=== PATIENT | female | born 2000 | race Caucasian/White ===

== ENCOUNTER 2022-04-30 11:13 | Emergency (ER) | payer OTHER, SELFPAY ==
[2022-04-30 11:35] VITALS: BP 105/72; PULSE 105; RESP 16; TEMP 37.3; O2SAT 100
--- NOTE | 2022-04-30 12:41 | ED.SKABFB ---
HPI - Skin/Abscess/Foreign Bdy General Chief complaint: Skin/Abscess/Foreign Body Stated complaint: Rash Time Seen by Provider: 04/30/22 12:41 Source: patient Mode of arrival: ambulatory Limitations: no limitations History of Present Illness HPI narrative: 21-year-old female presents with rash to right axilla area for 2 to 3 days. Has been applying triamcinolone cream with no relief. Is concerned it is an insect bite or contagious rash. Reports mild itching. No pain. All systems reviewed and negative except as noted above. Related Data Home Medications Medication Instructions Recorded Confirmed cetirizine 10 mg tablet tablet 04/30/22 famotidine 20 mg tablet tablet 04/30/22 hydroxyzine HCl 25 mg tablet tablet 04/30/22 montelukast 10 mg tablet tablet 04/30/22 vortioxetine 10 mg tablet tablet 04/30/22 (Trintellix) Allergies Allergy/AdvReac Type Severity Reaction Status Date / Time No Known Allergies Allergy Verified 04/30/22 12:34 Review of Systems Review of Systems: CONSTITUTIONAL: Denies fever, chills, or sweats. EYES: Denies visual changes, redness, or discharge. ENT: Denies rhinorrhea, congestion, sore throat, or otalgia. CARDIOVASCULAR: Denies chest pain, palpitations, or edema. RESPIRATORY: Denies cough or dyspnea. GASTROINTESTINAL: Denies abdominal pain, nausea, vomiting, or diarrhea. GENITOURINARY: Denies dysuria or hematuria. SKIN: Reports rash in axilla with itching. MUSCULOSKELETAL: Denies back pain, joint pain, or myalgia. NEUROLOGIC: Denies headache, numbness, or weakness. PSYCHIATRIC: Denies anxiety or depression. All other systems reviewed are negative, except as documented in HPI. PMFSH Comments At time of signature, agree with nursing past medical, surgical, social and family history. There is no relevant family history pertinent to the presenting complaint. Exam Narrative: GENERAL: This is a well-nourished, well-developed patient, in no apparent distress. HEAD: normocephalic, atraumatic. EYES: PERRL. Sclera clear/white. Vision is grossly intact. EARS: External ears normal NOSE: External nose normal NECK: Neck supple, non-tender without lymphadenopathy, masses or thyromegaly. CARDIOVASCULAR: Regular rate and rhythm without murmurs, gallops, or rubs. RESPIRATORY: Clear to auscultation. Breath sounds equal bilaterally. No wheezes, rales, or rhonchi. SKIN: warm, Dry, intact with no suspicious lesions, good texture and turgor. fine erythematous papular rash to R axilla without drainage or swelling. similar to imelda. NEURO: awake, alert, and oriented to person, place and time. There were no obvious focal neurologic abnormalities. EXTREMITIES: No joint tenderness, effusion, or edema noted. Course Course Level of Care: Express Care Visit Vital Signs Vital signs: Vital Signs Temperature 37.3 C 04/30/22 11:35 Pulse Rate 105 H 04/30/22 11:35 Respiratory Rate 16 04/30/22 11:35 Blood Pressure 105/72 04/30/22 11:35 Pulse Oximetry 100 04/30/22 11:35 Oxygen Delivery Room Air 04/30/22 11:35 Temperature 37.3 C 04/30/22 11:35 Pulse Rate 105 H 04/30/22 11:35 Respiratory Rate 16 04/30/22 11:35 Blood Pressure 105/72 04/30/22 11:35 Pulse Oximetry 100 04/30/22 11:35 Oxygen Delivery Room Air 04/30/22 11:35 Reviewed MDM - Skin/Abscess/Foreign Bdy MDM Narrative Medical decision making narrative: Patient is aware of diagnosis, understands and agrees to treatment plan. Anticipatory guidance given. Patient agrees to follow-up as directed and is aware of reasons to seek care at the emergency department. Portions of this record may have been created with voice recognition software Discharge Plan Discharge Clinical Impression: Imelda Patient Disposition: Home, Self-Care Condition: Stable Instructions: General Patient Instructions Additional Instructions: Apply vaseline or aquaphor. May also try a powder such as Goldbond. Preven
== END 2022-04-30 13:03 | disposition home or self-care (01) ==
PROVIDERS: Emergency Provider Nurse Practitioner Family; PCP Physician Assistant
DX: L30.4 Erythema intertrigo (principal)
CPT/HCPCS: 99202; G0463

== ENCOUNTER 2022-06-20 15:39 | Emergency (ER) | payer OTHER, SELFPAY ==
--- NOTE | 2022-06-20 15:41 | ED.ABDPAIN ---
HPI - Abdominal Pain General Chief Complaint: Abdominal Pain Stated Complaint: Abdominal Pain,Back Pain, Nausea Time Seen by Provider: 06/20/22 15:48 Source: patient, RN notes reviewed and old records reviewed Mode of arrival: ambulatory Limitations: no limitations History of Present Illness HPI narrative: 21-year-old female presents to the [facility] with complaints of right lower quadrant pain that is radiating into her back since last night. Denies any urinary symptoms. Denies any chest pain. Denies fevers Last bowel movement was this morning and she reports is normal Related Data Hx Last Menstrual Period: Has IUD Patient : No Home Medications Medication Instructions Recorded Confirmed cetirizine 10 mg tablet 1 tablet PO DAILY 04/30/22 06/20/22 famotidine 20 mg tablet 1 tablet PO DAILY 04/30/22 06/20/22 hydroxyzine HCl 25 mg tablet 1 tablet PO DAILY 04/30/22 06/20/22 montelukast 10 mg tablet 1 tablet PO DAILY 04/30/22 06/20/22 vortioxetine 10 mg tablet 1 tablet PO DAILY 04/30/22 (Trintellix) Allergies Allergy/AdvReac Type Severity Reaction Status Date / Time No Known Allergies Allergy Verified 06/20/22 15:48 Review of Systems Review of Systems: All systems reviewed & are unremarkable except as noted in HPI and below Constitutional: Constitutional: Reports no additional constitutional complaints, Denies chills and Denies fever(s) Eyes: Eyes: Reports no additional eye complaints ENT: Reports system reviewed and no additional complaints, except as documented Cardiovascular: Cardiovascular: Reports no additional cardiovascular complaints Respiratory: Respiratory: Reports no additional respiratory complaints Gastrointestinal: Gastrointestinal: Reports as per HPI, Reports abdominal pain, Denies diarrhea, Reports nausea and Denies vomiting Musculoskeletal: Musculoskeletal: Reports no additional musculoskeletal complaints Integumentary/Breasts: Skin/Breast: Reports system reviewed and no additional complaints, except as docu Neurologic: Reports system reviewed and no additional complaints, except as documented Psychiatric: Psychiatric: Reports no additional psychiatric complaints Allergic/Immunologic: Allergic/Immunologic: Reports no additional allergic/immunologic complaints PMFSH Past Medical History Medical History Anxiety and depression Seasonal allergies Surgical History Surgical History (Updated 06/20/22 @ 15:55 by Ena A. Topper, STAFFING MANAGER) No pertinent past surgical history Social History Social History (Updated 06/20/22 @ 17:11 by Jairo Gee DO) Smoking status: Never smoker Gender identity (if verbalized by the patient): Female Comments At the time of my signature, I reviewed and agree with the nursing past medical, surgical, social, and family history. There is no relevant family history pertinent to the patient complaint. Exam Const: General: healthy appearing, no acute distress and alert Nutritional Appearance: well nourished Orientation/consciousness: patient oriented x3 Limitations: no limitations HENMT: Head: normal to inspection Ears: external ears normal General nose exam: Normal external nose present Eyes: General: appearance normal, both eyes and all related structures Pupils: Equal, round and reactive pupils present Neck: Neck: normal visual inspection, no lymphadenopathy and no meningeal signs Chest: Chest palpation & inspection: normal inspection of the chest Resp: Effort & Inspection: normal respiratory effort and no use of accessory muscles Auscultation: clear to auscultation bilaterally, no crackles, no rales, no rhonchi and no wheezes Cardio: Rate: regular rate Rhythm: regular rhythm GI: Inspection: normal to inspection GI Palp: Yes abdominal tenderness, Yes Soft to palpation and Yes Tenderness to palpation present (GI) (Suprapubic, right lower quadrant radiating into her back) Pe
[2022-06-20 15:49] VITALS: BP 103/68; PULSE 61; RESP 18; TEMP 37.4; O2SAT 100
== END 2022-06-20 15:55 | disposition short-term general hospital (02) ==
LOC: EXPCOLL 15:44
PROVIDERS: Emergency Provider Nurse Practitioner; PCP Physician Assistant
DX: R10.31 Right lower quadrant pain (principal)
CPT/HCPCS: 99212; G0463

== ENCOUNTER 2022-06-20 16:18 | Emergency (ER) | payer OTHER, SELFPAY ==
--- NOTE | ~2022-06-20 | CT_ITS ---
EXAMINATION: CT abdomen pelvis w con DATE: 06/20/2022 17:32 INDICATION: abd pain TECHNIQUE: Computed tomography (CT) of the abdomen and pelvis was performed with 100 mL Omnipaque-350 intravenous contrast. Automated exposure control and iterative reconstruction technique were employe d. The dose-length product was 300.84 mGy-cm. COMPARISON: None. FINDINGS: Lower thorax: Left lower lobe hamartoma or granuloma. Liver: Liver is mildly enlarged. Biliary/Gallbladder: Gallbladder is normal. No bile duct dilation. Pancreas: No mass or duct dilation. Spleen: The spleen is enlarged. Adrenals:No mass. Kidneys: Punctate nonobstructive right midpole calculi. No suspicious mass or hydronephrosis. GI tract: No small or large bowel dilation. Normal appendix. Mesentery/Peritoneum: No ascites, mass, or free air. Retroperitoneum: No mass. Pelvis: Pelvic organs are within normal limits. IUD, in good position. Soft Tissues: Soft tissues and body wall unremarkable. Bones: No acute osseous finding. IMPRESSION: Mild hepatosplenomegaly. Otherwise, no acute abdominopelvic process detected. Reviewed, dictated and finalized at location K.
[2022-06-20 16:20] VITALS: BP 113/77; PULSE 65; RESP 14; TEMP 36.8; O2SAT 100
[2022-06-20 16:53] LABS: Basophils Percent Auto 0.3 % (0.2-1.2); Eosinophils Absolute Auto 0.2 K/mm3 (0-0.3); Hematocrit 41.7 % (37.0-47.0); Hemoglobin 14.3 g/dL (12.0-15.0); Immature Granulocyte Absolute 0.02 K/mm3 (0.00-0.031); Immature Granulocyte Percent A 0.3 % (0-0.5); Lymphocytes Absolute Auto 2.81 K/mm3 (0.9-3.2); Lymphocytes Percent Auto 36.6 % (18.3-44.2); Mean Corpuscular HGB Conc 34.3 g/dl (32-36); Mean Corpuscular Hemoglobin 30.3 pg (26-34); Mean Corpuscular Volume 88.3 fl (80-100); Mean Platelet Volume 9.9 fl (7.4-10.4); Monocytes Absolute Auto 0.7 K/mm3 (0.1-0.6); Monocytes Percent Auto 9.1 % (2.6-8.5); Neutrophils Absolute Auto 3.9 K/mm3 (1.3-6.7); Neutrophils Percent Auto 50.7 % (45.5-73.1); Platelet Count Result 191 k/mm3 (150-375); Red Blood Count 4.72 M/mm3 (4.2-5.4); Red Cell Distribution Width 12.2 % (11.5-14.5); White Blood Count 7.7 K/mm3 (4.5-10.0)
[2022-06-20 16:56] LABS: Appearance Urine Clear (Clear); Bilirubin Urine Negative (Negative); Blood Urine Negative (Negative); Color Urine Yellow (Yellow); Glucose Urine UA Negative (Negative); Ketones Urine Negative (Negative); Leukocyte Esterase Ur Negative LEU/UL (Negative); Nitrate Urine Negative (Negative); Protein Urine Negative (Negative); Urobilinogen Urine 0.2 mg/dL (<2.0); pH Urine 5.5 (5.0-9.0)
[2022-06-20 17:05] LABS: Add Urine Microscopic? NO
[2022-06-20 17:05] LABS: Alanine Aminotransferase 18 U/L (6-35); Albumin Level 4.6 g/dL (3.7-5.6); Alkaline Phosphatase 54 U/L (45-116); Anion Gap 8 mmol/L (8-16); Aspartate Amino Transferase 21 U/L (14-36); Bilirubin,Total 0.8 mg/dL (0.2-1.3); Blood Urea Nitrogen 8 mg/dL (8-21); Calcium 9.7 mg/dL (8.9-10.7); Carbon Dioxide 24 mmol/L (22-30); Chloride 109 mmol/L (98-107); Estimated CRCL calculation 119 ml/min; Estimated Glomerular Filt Rate > 60; Glucose 89 mg/dL (65-110); Lipase 64 U/L (23-300); Potassium 3.9 mmol/L (3.4-5.0); Sodium 141 mmol/L (134-143)
[2022-06-20] MEDS: ONDANSETRON INJ 4 MG/2 ML VIAL IV PUSH (17:08)
[2022-06-20] MEDS: KETOROLAC 30 MG/ML VIAL (*BKC) IV PUSH (17:10)
--- NOTE | 2022-06-20 17:11 | ED.GENADULT ---
HPI - General Adult General Chief complaint: Abdominal Pain Stated complaint: abd pain Time Seen by Provider: 06/20/22 16:25 Source: RN notes reviewed History of Present Illness HPI narrative: Patient presents emergency room from home for abdominal pain. Patient states abdominal pain began last night the pain is located in the bilateral mid abdomen radiates around to the bilateral flank described as cramping in nature with episodes of sharp and stabbing pain. States has been associated with nausea as well as diarrhea she denies any fevers or chills chest pain shortness of breath or any other symptoms states she not taking medication for the symptoms today Related Data Home Medications Medication Instructions Recorded Confirmed cetirizine 10 mg tablet 1 tablet PO DAILY 04/30/22 06/20/22 famotidine 20 mg tablet 1 tablet PO DAILY 04/30/22 06/20/22 hydroxyzine HCl 25 mg tablet 1 tablet PO DAILY 04/30/22 06/20/22 montelukast 10 mg tablet 1 tablet PO DAILY 04/30/22 06/20/22 vortioxetine 10 mg tablet 1 tablet PO DAILY 04/30/22 (Trintellix) Allergies Allergy/AdvReac Type Severity Reaction Status Date / Time No Known Allergies Allergy Verified 06/20/22 15:48 Review of Systems Review of Systems: Gen.: Denies fevers or chills ENT: Denies congestion Respiratory: Denies shortness of breath or cough CV: Denies chest pain or palpitations GI: See HPI denies burning, urgency, frequency or hematuria Musculoskeletal: Denies back pain or muscle pain Neuro: Denies numbness, tingling, weakness or focal weakness Skin: Denies rash Except as documented, all other systems reviewed and negative [facility] Past Medical History Medical History Anxiety and depression Seasonal allergies Surgical History Surgical History (Updated 06/20/22 @ 15:55 by Ena Wise APRN) No pertinent past surgical history Social History Social History (Updated 06/20/22 @ 17:11 by Jairo Gee DO) Smoking status: Never smoker Gender identity (if verbalized by the patient): Female Exam Narrative: APPEARANCE: No acute distress, nontoxic, resting in bed EYES: EOMI HEENT: Normocephalic, atraumatic, OMM RESPIRATORY: No respiratory distress Clear to auscultation bilaterally with no rhonchi wheezing or rales. CARDIOVASCULAR: Regular rate and rhythm without murmurs rubs or gallops. ABDOMINAL: Soft, nondistended diffusely tender palpation no rebound or guarding MUSCULOSKELETAl: Moves all extremities. No clubbing, cyanosis or edema. NEURO: Awake and alert. Following commands, speech normal, no focal deficits SKIN:: Warm, dry. No rashes lesions or abrasions PSYCHIATRIC: Normal affect/mood, Course Course Emergency Course: Patient states that they are feeling much better at this time. States abdominal pain has resolved. Repeat abdominal exam shows the patient's abdomen to be soft and nontender. Discussed with patient results of workup and diagnosis. Discussed need for follow-up with primary care physician, reasons to return to the emergency department in proper use of medication. Patient understands and agrees to current treatment plan Vital Signs Vital signs: Vital Signs Temperature 98.2 F 06/20/22 16:20 Pulse Rate 65 06/20/22 16:20 Respiratory Rate 14 06/20/22 16:20 Blood Pressure 113/77 06/20/22 16:20 Pulse Oximetry 100 06/20/22 16:20 Oxygen Delivery Room Air 06/20/22 16:20 Temperature 98.2 F 06/20/22 16:20 Pulse Rate 65 06/20/22 16:20 Respiratory Rate 14 06/20/22 16:20 Blood Pressure 113/77 06/20/22 16:20 Pulse Oximetry 100 06/20/22 16:20 Oxygen Delivery Room Air 06/20/22 16:20 Medical Decision Making MDM Narrative Medical decision making narrative: Patient's abdomen is soft without significant pain or signs of surgical abdomen on serial exams. Lab and x-ray evaluations are reviewed and patient is felt to be a reasonable candidate for
[2022-06-20] MEDS: SODIUM CHLORIDE 0.9% IV 1,000 ML 999 ML IV CONT (17:12)
[2022-06-20 18:16] VITALS: BP 106/67; PULSE 67; RESP 21; O2SAT 100
== END 2022-06-20 18:21 | disposition home or self-care (01) ==
PROVIDERS: Emergency Provider Emergency Medicine; PCP Physician Assistant
DX: R10.9 Unspecified abdominal pain (principal); R19.7 Diarrhea, unspecified; F41.9 Anxiety disorder, unspecified; F32.A Depression, unspecified; R16.2 Hepatomegaly with splenomegaly, not elsewhere classified
CPT/HCPCS: 36415; 74177; 80053; 81003; 81025; 83690; 85025; 96361; 96374; 96375; 99284; J1885; J2405; J7030; Q9967

== ENCOUNTER 2022-11-21 13:26 | Emergency (ER) | payer OTHER, SELFPAY ==
[2022-11-21 13:38] VITALS: BP 107/72; PULSE 72; RESP 18; TEMP 37.1; O2SAT 100
--- NOTE | 2022-11-21 14:09 | ED.FEMALEGU ---
HPI - Female Genitourinary General Chief complaint: Urogenital-Female Stated complaint: UTI Time Seen by Provider: 11/21/22 14:09 Source: patient and RN notes reviewed Mode of arrival: ambulatory Limitations: no limitations History of Present Illness HPI Narrative: 22 year old female presented for complaint of urinary frequency, burning with urination, and cloudy urine since last night. She endorses feels weak. She had abdominal pain nausea vomiting, diarrhea, flank pain, fevers or chills. Denies significant history of UTIs. Patient has IUD. Related Data Home Medications Medication Instructions Recorded Confirmed cetirizine 10 mg tablet 1 tablet PO DAILY 04/30/22 06/20/22 montelukast 10 mg tablet 1 tablet PO DAILY 04/30/22 06/20/22 duloxetine 30 mg capsule,delayed mg PO 11/21/22 11/21/22 release levonorgestrel 17.5 mcg/24 hrs 1 device intrauterine ONCE 11/21/22 11/21/22 (5yrs) 19.5mg intrauterine device (Kyleena) Allergies Allergy/AdvReac Type Severity Reaction Status Date / Time No Known Allergies Allergy Verified 11/21/22 13:36 Review of Systems Review of Systems: CONSTITUTIONAL: Denies body aches, fever, chills, or sweats. CARDIOVASCULAR: Denies chest pain, palpitations, or edema. RESPIRATORY: Denies cough or dyspnea. GASTROINTESTINAL: Denies abdominal pain, nausea, vomiting, or diarrhea. GENITOURINARY: Reports dysuria, frequency, urgency, denies hematuria, flank pain SKIN: Denies rash, itching, or wounds. MUSCULOSKELETAL: Denies back pain or myalgia. [facility] Past Medical History Medical History Anxiety and depression Seasonal allergies Surgical History Surgical History No pertinent past surgical history Social History Social History Smoking status: Never smoker Gender identity (if verbalized by the patient): Female Comments At time of signature, I have reviewed and agree with nursing past medical, surgical, social and family history unless otherwise noted. Please see nursing chart for further information. There is no relevant family history pertinent to the presenting complaint Exam Narrative: GENERAL: Well-appearing and in no acute distress. ENT: Mucous membranes pink and moist. CHEST: No respiratory distress. Clear to auscultation. HEART: Regular rate and rhythm. ABDOMEN: Soft, nontender, nondistended, normal active bowel sounds. No CVA tenderness SKIN: Warm, dry, no rash. NEURO: No focal deficits. Alert and oriented x3. Gait steady. Course Course Emergency Course: Patient is aware of diagnosis, understands and agrees to treatment plan. Anticipatory guidance given. Patient agrees to follow-up as directed and is aware of reasons to seek care at the emergency department. Portions of this record may have been created with voice recognition software Level of Care: Express Care Visit Vital Signs Vital signs: Vital Signs Temperature 98.8 F 11/21/22 13:38 Pulse Rate 72 11/21/22 13:38 Respiratory Rate 18 11/21/22 13:38 Blood Pressure 107/72 11/21/22 13:38 Pulse Oximetry 100 11/21/22 13:38 Temperature 98.8 F 11/21/22 13:38 Pulse Rate 72 11/21/22 13:38 Respiratory Rate 18 11/21/22 13:38 Blood Pressure 107/72 11/21/22 13:38 Pulse Oximetry 100 11/21/22 13:38 Reviewed MDM - Female Genitourinary MDM Narrative Medical decision making narrative: Result of urine reviewed with pt. Advised supportive measures and signs/symptoms to go to the ER. Pt is appropriate for outpt treatment and f/u. Differential Diagnosis Differential diagnosis: Likely urinary tract infection and cystitis Lab Data Labs: Urine Glucose Negative Reference Range: Negative Urine Bilirubin Negative
== END 2022-11-21 14:25 | disposition home or self-care (01) ==
PROVIDERS: Emergency Provider Nurse Practitioner Family; PCP Physician Assistant
DX: N39.0 Urinary tract infection, site not specified (principal)
CPT/HCPCS: 81003; 87077; 87086; 87186; 99213; G0463

== ENCOUNTER 2023-08-03 14:36 | Outpatient (CLI) | payer OTHER, SELFPAY ==
--- NOTE | ~2023-08-03 | US_ITS ---
EXAMINATION: US soft tissue head and neck DATE: 08/03/2023 15:33 INDICATION: Cervical lymphadenopathy. TECHNIQUE: Multiple grayscale and Doppler ultrasound images of the head and neck were obtained. COMPARISON: None FINDINGS: There are normal lymph nodes in the neck bilaterally. IMPRESSION: 1. No abnormal neck mass or lymphadenopathy. Reviewed, dictated and finalized at location E.
== END 2023-08-03 14:37 | disposition home or self-care (01) ==
PROVIDERS: PCP Physician Assistant; Visit Provider Physician Assistant
DX: R59.0 Localized enlarged lymph nodes (principal)
CPT/HCPCS: 76536

== ENCOUNTER 2023-10-13 09:09 | Emergency (ER) | payer OTHER, SELFPAY ==
[2023-10-13 09:20] VITALS: BP 105/61; PULSE 88; RESP 16; TEMP 37.3; O2SAT 100
--- NOTE | 2023-10-13 09:32 | ED.FEMALEGU ---
HPI - Female Genitourinary General Chief complaint: Urogenital-Female Stated complaint: UTI Time Seen by Provider: 10/13/23 09:47 Source: patient, RN notes reviewed and old records reviewed Mode of arrival: ambulatory Limitations: no limitations History of Present Illness HPI Narrative: 22-year-old female presents to the [facility] with concerns for any UTI. Symptoms started yesterday. Patient reports she has had lower back pain, lower abdominal cramping, frequency, burning with urination and trace of blood when she urinates. No treatment prior to arrival Onset (ago): day(s) (1) Related Data Home Medications Medication Instructions Recorded Confirmed montelukast 10 mg tablet 1 tablet PO DAILY 04/30/22 10/13/23 levonorgestrel 17.5 mcg/24 hrs 1 device intrauterine ONCE 11/21/22 10/13/23 (5yrs) 19.5mg intrauterine device (Kyleena) citalopram 20 mg tablet 20 mg PO DAILY 10/13/23 10/13/23 quetiapine 100 mg tablet 100 mg PO DIRECTED 10/13/23 10/13/23 Allergies Allergy/AdvReac Type Severity Reaction Status Date / Time No Known Allergies Allergy Verified 10/13/23 09:47 Review of Systems Review of Systems: All systems reviewed & are unremarkable except as noted in HPI and below Constitutional: Constitutional: Reports no additional constitutional complaints Eyes: Eyes: Reports no additional eye complaints ENT: Reports system reviewed and no additional complaints, except as documented Cardiovascular: Cardiovascular: Reports no additional cardiovascular complaints, Denies chest pain and Denies dyspnea Respiratory: Respiratory: Reports no additional respiratory complaints, Denies chest congestion, Denies cough and Denies dyspnea Gastrointestinal: Gastrointestinal: Reports as per HPI, Reports abdominal pain (Suprapubic pressure), Denies nausea and Denies vomiting Genitourinary: Genitourinary: Reports as per HPI and Reports dysuria Musculoskeletal: Musculoskeletal: Reports no additional musculoskeletal complaints Integumentary/Breasts: Skin/Breast: Reports system reviewed and no additional complaints, except as docu Neurologic: Reports system reviewed and no additional complaints, except as documented Psychiatric: Psychiatric: Reports no additional psychiatric complaints Allergic/Immunologic: Allergic/Immunologic: Reports no additional allergic/immunologic complaints PMFSH Past Medical History Medical History Anxiety and depression Seasonal allergies Surgical History Surgical History No pertinent past surgical history Social History Social History Smoking status: Never smoker Gender identity (if verbalized by the patient): Female Comments At the time of my signature, I reviewed and agree with the nursing past medical, surgical, social, and family history. There is no relevant family history pertinent to the patient complaint. Exam Const: General: cooperative, healthy appearing, comfortable, no acute distress, well developed, alert and well nourished Nutritional Appearance: well nourished Orientation/consciousness: patient oriented x3 Limitations: no limitations HENMT: Head: normal to inspection Ears: hearing grossly normal bilaterally and external ears normal Face/Nose/Sinus: Normal external nose present, Normal nares present, Normal nasal mucous membranes and turbinates present, normal facial exam and face symmetric Face and sinus: normal facial exam and face symmetric Eyes: General: appearance normal, both eyes and all related structures Alignment and Position: alignment normal Periorbital: periorbital findings normal Pupils: Equal, round and reactive pupils present EOM: EOMs intact bilaterally Neck: Neck: normal visual inspection, full ROM, no lymphadenopathy and no meningeal signs Chest: Chest palpation & inspection: kylee
== END 2023-10-13 10:00 | disposition home or self-care (01) ==
PROVIDERS: Emergency Provider Nurse Practitioner; PCP Physician Assistant
DX: N30.01 Acute cystitis with hematuria (principal); Z79.899 Other long term (current) drug therapy
CPT/HCPCS: 81003; 81025; 87077; 87086; 87186; 99213; G0463

== ENCOUNTER 2023-11-03 12:58 | Emergency (ER) | payer OTHER, SELFPAY ==
--- NOTE | 2023-11-03 13:03 | ED.FEMALEGU ---
HPI - Female Genitourinary General Chief complaint: Urogenital-Female Stated complaint: urinary issue Time Seen by Provider: 11/03/23 13:04 Source: patient Mode of arrival: ambulatory Limitations: no limitations History of Present Illness HPI Narrative: Annabelle is a 23-year-old female patient presenting to the clinic today with complaints of possible urinary tract infection. She was seen back on October 08 and diagnosed with the UTI. Her culture that time came back positive for E coli. She was placed on Augmentin and that was susceptible to E coli. States pain started about 2 days ago. Was having burning, frequency, and urgency. No known fever or chills. No back pain or abdominal pain Related Data Home Medications Medication Instructions Recorded Confirmed montelukast 10 mg tablet 1 tablet PO DAILY 04/30/22 11/03/23 levonorgestrel 17.5 mcg/24 hrs 1 device intrauterine ONCE 11/21/22 11/03/23 (5yrs) 19.5mg intrauterine device (Kyleena) citalopram 20 mg tablet 20 mg PO DAILY 10/13/23 11/03/23 quetiapine 100 mg tablet 100 mg PO DIRECTED 10/13/23 11/03/23 Allergies Allergy/AdvReac Type Severity Reaction Status Date / Time No Known Allergies Allergy Verified 10/13/23 09:47 Review of Systems Review of Systems: Pertinent positives per HPI. Patient denies any fever, chills, rash, headache, visual changes, dizziness, cough, runny nose, sore throat, shortness of breath, chest pain, palpitations, nausea, vomiting, diarrhea, constipation, abdominal pain. PMFSH Past Medical History Medical History Anxiety and depression Seasonal allergies Surgical History Surgical History No pertinent past surgical history Social History Social History Smoking status: Never smoker Gender identity (if verbalized by the patient): Female Comments At the time of my signature, I reviewed and agree with the nursing past medical, surgical, social, and family history. There is no relevant family history pertinent to the patient complaint. Exam Narrative: General: Well-developed, well nourished, in no apparent distress. Head: Normocephalic, atraumatic. Cardio: Regular rate and rhythm, s1 and s2 normal, no murmur appreciated. Resp: Clear to auscultation bilaterally, no rhonchi, rales, wheezing or rubs. Abdomen: Soft, pliable, bowel sounds present in all quadrants, mild tender to palpation, no organomegly, no CVAT tenderness. Course Course Emergency Course: Portions of this record may have been created with voice recognition software. Level of Care: Express Care Visit Vital Signs Vital signs: Vital Signs Temperature 36.4 C L 11/03/23 13:08 Pulse Rate 78 11/03/23 13:08 Respiratory Rate 16 11/03/23 13:08 Blood Pressure 103/69 11/03/23 13:08 Pulse Oximetry 100 11/03/23 13:08 Oxygen Delivery Room Air 11/03/23 13:08 Temperature 36.4 C L 11/03/23 13:08 Pulse Rate 78 11/03/23 13:08 Respiratory Rate 16 11/03/23 13:08 Blood Pressure 103/69 11/03/23 13:08 Pulse Oximetry 100 11/03/23 13:08 Oxygen Delivery Room Air 11/03/23 13:08 Vital signs reviewed MDM - Female Genitourinary MDM Narrative Medical decision making narrative: At the time of visit patient is resting comfortably on the exam table. Patient appears to be nontoxic. UA shows positive protein, leukocytes, and blood. Bedside test was negative. Will place the patient on Bactrim and Pyridium. Supportive measures were discussed with the patient and they voiced understanding discharge instructions and agrees to treatment plan. Return precautions reviewed Differential Diagnosis Differential diagnosis: Likely urinary tract infection and cystitis Lab Data Labs: UCG Bedside Result Negative
[2023-11-03 13:08] VITALS: BP 103/69; PULSE 78; RESP 16; TEMP 36.4; O2SAT 100
== END 2023-11-03 13:40 | disposition home or self-care (01) ==
PROVIDERS: Emergency Provider Nurse Practitioner Family; PCP Physician Assistant
DX: N30.01 Acute cystitis with hematuria (principal); F41.9 Anxiety disorder, unspecified; F32.A Depression, unspecified
CPT/HCPCS: 81003; 81025; 87086; 99213; G0463

== ENCOUNTER 2024-09-03 17:23 | Emergency (ER) | payer OTHER, SELFPAY ==
[2024-09-03 17:36] VITALS: BP 108/74; PULSE 85; RESP 15; TEMP 37; O2SAT 100
--- NOTE | 2024-09-03 18:03 | ED.FEMALEGU ---
HPI - Female Genitourinary General Chief complaint: Urogenital-Female Stated complaint: UTI Time Seen by Provider: 09/03/24 18:03 Source: patient, RN notes reviewed and old records reviewed Mode of arrival: ambulatory Limitations: no limitations History of Present Illness HPI Narrative: 23 year female presents to the [facility] with concerns for approximately 4-5 hours of frequency, urgency and burning with urination. Also noticed blood in her urine. Has had several UTIs in the past. States that every time she gets 1 the symptoms, faster and get worse. Related Data Home Medications Medication Instructions Recorded Confirmed montelukast 10 mg tablet 1 tablet PO DAILY 04/30/22 09/03/24 levonorgestrel 17.5 mcg/24 hr (up 1 device intrauterine ONCE 11/21/22 09/03/24 to 5 yrs) 19.5mg intrauterine device (Kyleena) citalopram 20 mg tablet 20 mg PO DAILY 10/13/23 09/03/24 quetiapine 100 mg tablet 100 mg PO DIRECTED 10/13/23 09/03/24 Allergies Allergy/AdvReac Type Severity Reaction Status Date / Time No Known Allergies Allergy Verified 09/03/24 19:30 Review of Systems Review of Systems: All systems reviewed & are unremarkable except as noted in HPI and below Constitutional: Constitutional: Reports no additional constitutional complaints ENT: Reports system reviewed and no additional complaints, except as documented Cardiovascular: Cardiovascular: Reports no additional cardiovascular complaints, Denies chest pain and Denies dyspnea Respiratory: Respiratory: Reports no additional respiratory complaints, Denies chest congestion, Denies cough and Denies dyspnea Gastrointestinal: Gastrointestinal: Reports no additional gastrointestinal complaints, Denies abdominal pain, Denies nausea and Denies vomiting Genitourinary: Genitourinary: Reports as per HPI Musculoskeletal: Musculoskeletal: Reports no additional musculoskeletal complaints Integumentary/Breasts: Skin/Breast: Reports system reviewed and no additional complaints, except as docu PMFSH Past Medical History Medical History Anxiety and depression Seasonal allergies Surgical History Surgical History No pertinent past surgical history Social History Social History Smoking status: Never smoker Gender identity (if verbalized by the patient): Female Comments At the time of my signature, I reviewed and agree with the nursing past medical, surgical, social, and family history. There is no relevant family history pertinent to the patient complaint. Exam Const: General: cooperative, healthy appearing, comfortable, no acute distress, well developed, alert and well nourished Nutritional Appearance: well nourished Orientation/consciousness: patient oriented x3 Limitations: no limitations HENMT: Head: normal to inspection Ears: hearing grossly normal bilaterally and external ears normal Face/Nose/Sinus: Normal external nose present, normal facial exam and face symmetric Face and sinus: normal facial exam and face symmetric Eyes: General: appearance normal, both eyes and all related structures Alignment and Position: alignment normal Periorbital: periorbital findings normal Neck: Neck: normal visual inspection, full ROM, no lymphadenopathy and no meningeal signs Chest: Chest palpation & inspection: normal inspection of the chest Resp: Effort & Inspection: normal respiratory effort and able to speak in complete sentences Auscultation: clear to auscultation bilaterally, no crackles, no rales, no rhonchi and no wheezes Cardio: Rate: regular rate GI: GI Palp: No abdominal tenderness : General: Yes no CVA tenderness Skin: General skin exam: normal color and no rashes or lesions noted Lesions: no lesions Rashes: no rashes Wounds: no wounds Neuro: General: patient oriented x3, gait normal, tone normal, moves all extremities and no meningeal signs Cognition (Neuro): normal cognition Speech: normal speech Gait exam (Neuro): Normal gait present Extrem: General: normal to inspection, full ROM, capillary refill normal and normal gait Psych: Appearance: grossly normal and well kempt Mental Status: mental status grossly normal Speech and movement: Normal speech and movement present and Clear speech present Affect: normal affect Attitude: cooperative Course Course Level of Care: Express Care Visit Vital Signs Vital signs: Vital Signs Temperature 98.6 F 09/03/24 17:36 Pulse Rate 85 09/03/24 17:36 Respiratory Rate 15 09/03/24 17:36 Blood Pressure 108/74 09/03/24 17:36 Pulse Oximetry 100 09/03/24 17:36 Oxygen Delivery Room Air 09/03/24 17:36 Temperature 98.6 F 09/03/24 17:36 Pulse Rate 85 09/03/24 17:36 Respiratory Rate 15 09/03/24 17:36 Blood Pressure 108/74 09/03/24 17:36 Pulse Oximetry 100 09/03/24 17:36 Oxygen Delivery Room Air 09/03/24 17:36 Reviewed MDM - Female Genitourinary MDM Narrative Medical decision making narrative: Patient sitting comfortably in exam room. Nontoxic, vitals stable. Patient in no acute distress Patient symptoms of frequency, urgency, burning and seeing blood in the urine Discussed concerns for the hematuria, offered to send to the ER with the amount of blood in her urine, she declined wanting to follow-up with primary care provider in the morning. Discussed the importance of following up. Discussed additional signs and symptoms go the emergency room which she broke verbalized understanding Discharge instructions reviewed with patient, as well as provided in writing per nursing staff. The instructions also include specific and strict return/GO TO THE ER as well as f/u information. All questions have been answered, and the patient deny any further questions with discharge and discharge plan. Some parts of this dictation were generated by voice recognition software and may contain typographical and/or grammatical inaccuracies. Differential Diagnosis Differential diagnosis: Likely urinary tract infection and cystitis Lab Data Labs: Lab Results 09/03/24 Range/Units 18:25 POC Urine Color Brown POC Urine Clarity Cloudy POC Urine pH 6.0 POC Ur Specif [place] 1.030 POC Urine Protein 3+ (Negative) POC Ur Glucose (UA) Negative (Negative) POC Urine Ketones Trace (Negative) POC Urine Blood 3+ (Negative) POC Urine Nitrite Positive (Negative) POC Urine Bilirubin 2+ (Negative) POC Urine Urobilinogen 2.0 POC U Leukocyte Esteras Trace (Negative) Reviewed Critical Care Time Critical Care Time Critical Care Time: No Discharge Plan Discharge Clinical Impression: Urinary tract infection, Hematuria Patient Disposition: Home, Self-Care Condition: Stable Instructions: Antibiotic Form, Urinary Tract Infection in Women (DC), Hematuria (ED) Additional Instructions: Call your primary care provider 1st thing in the morning for a follow-up appointment. Follow-up with urology If symptoms get worse, new or worsening symptoms develop please do not hesitate and go directly to the emergency room Patient Language: Wallisian Prescriptions: New amoxicillin-pot clavulanate 875-125 mg tablet 1 tablet PO Q12H 5 Days Qty: 10 0RF No Action montelukast 10 mg tablet 1 tablet PO DAILY Kyleena 17.5 mcg/24 hrs (5 yrs) 19.5 mg Intrauterine Device 1 device INTRAUTERINE ONCE Rx Instructions: as a single dose phenazopyridine [Pyridium] 200 mg tablet 200 mg PO TID PRN (Reason: pain) Qty: 6 0RF quetiapine 100 mg tablet 100 mg PO DIRECTED citalopram 20 mg tablet 20 mg PO DAILY Follow-up/Referrals: Mic,JOHN Akins [Primary Care Provider] - 1 Day (express care follow up ) Milton Morejon MD [Physician] - 3 Days (express care follow up. Hematuria) Stand Alone Forms: Work/School Release IP Time of Disposition: 18:15
[2024-09-03 18:28] LABS: EDUAAPPEAR Cloudy; EDUABILI 2+ (Negative); EDUABLOOD 3+ (Negative); EDUACOLOR1 Brown; EDUAGLUCOSE Negative (Negative); EDUAKETONE Trace (Negative); EDUALEUKO Trace (Negative); EDUANITRATE Positive (Negative); EDUAPROTEIN 3+ (Negative)
== END 2024-09-03 18:28 | disposition home or self-care (01) ==
PROVIDERS: Emergency Provider Nurse Practitioner; PCP Physician Assistant
DX: N39.0 Urinary tract infection, site not specified (principal); B96.89 Other specified bacterial agents as the cause of diseases classified elsewhere; R31.9 Hematuria, unspecified; F41.9 Anxiety disorder, unspecified; F32.A Depression, unspecified
CPT/HCPCS: 81003; 87086; 87186; 99213; G0463

== ENCOUNTER 2024-09-03 19:27 | Emergency (ER) | payer OTHER, SELFPAY ==
[2024-09-03 19:37] VITALS: BP 114/70; PULSE 102; RESP 16; TEMP 37.2; O2SAT 100
[2024-09-03 21:59] LABS: Basophils Percent Auto 0.3 % (0.2-1.2); Eosinophils Absolute Auto 0.3 K/mm3 (0-0.3); Eosinophils Percent Auto 2.2 % (0-4.4); Hematocrit 40.5 % (37.0-47.0); Hemoglobin 14.2 g/dL (12.0-15.0); Immature Granulocyte Absolute 0.05 K/mm3 (0.00-0.031); Immature Granulocyte Percent A 0.4 % (0-0.5); Lymphocytes Absolute Auto 1.86 K/mm3 (0.9-3.2); Lymphocytes Percent Auto 14.4 % (18.3-44.2); Mean Corpuscular HGB Conc 35.1 g/dl (32-36); Mean Corpuscular Hemoglobin 30.7 pg (26-34); Mean Corpuscular Volume 87.5 fl (80-100); Mean Platelet Volume 9.5 fl (7.4-10.4); Monocytes Absolute Auto 1.1 K/mm3 (0.1-0.6); Monocytes Percent Auto 8.4 % (2.6-8.5); Neutrophils Absolute Auto 9.6 K/mm3 (1.3-6.7); Neutrophils Percent Auto 74.3 % (45.5-73.1); Platelet Count Result 156 k/mm3 (150-375); Red Blood Count 4.63 M/mm3 (4.2-5.4); Red Cell Distribution Width 12.4 % (11.5-14.5); White Blood Count 12.9 K/mm3 (4.5-10.0)
[2024-09-03 22:11] LABS: Prothrombin Time 13.4 Seconds (11.1-14.7)
[2024-09-03 22:12] LABS: Partial Thromboplastin Time 25.1 Seconds (22.3-36.8)
[2024-09-03 22:13] LABS: Alanine Aminotransferase 17 U/L (6-35); Albumin Level 4.5 g/dL (3.5-5.1); Alkaline Phosphatase 45 U/L (38-126); Anion Gap 6 mmol/L (4-12); Aspartate Amino Transferase 23 U/L (14-36); Blood Urea Nitrogen 13 mg/dL (7-17); Calcium 9.6 mg/dL (8.4-10.2); Carbon Dioxide 27 mmol/L (22-30); Chloride 105 mmol/L (98-107); Estimated CRCL calculation 104 ml/min; Estimated Glomerular Filt Rate > 60; Glucose 101 mg/dL (65-110); Potassium 3.6 mmol/L (3.4-5.0); Sodium 138 mmol/L (137-145)
[2024-09-03 22:29] LABS: Beta HCG Quantitative < 2.39 mIU/ML
[2024-09-04 00:25] VITALS: BP 118/74; PULSE 89; RESP 16; TEMP 36.7; O2SAT 98
[2024-09-04] MEDS: SODIUM CHLORIDE 0.9% IV 1,000 ML 999 ML IV CONT (00:50)
[2024-09-04 00:52] LABS: BEDSIDEPREGUCG Negative (Negative)
--- NOTE | 2024-09-04 00:54 | ED_ITS ---
HPI - Female Genitourinary General Chief complaint: Urogenital-Female Stated complaint: hematuria from urgent care Time Seen by Provider: 09/04/24 00:18 History of Present Illness HPI Narrative: Patient is a 23-year-old female who presents to the emergency department this evening complaining of dysuria and hematuria. Patient states that she went to an urgent care prior to arrival and they did want a UA which revealed a UTI with a lot of RBCs. Patient was sent to our facility for further evaluation. Patient admits that she does get recurrent UTIs stating that she gets approximately 4 UTIs per year. Patient also noticed that every time she gets another UTI it gets worse, going from 0-100 in a day. Patient was recommended to follow-up with a urologist regarding this by her primary care physician but has not had a chance to do so. She is currently denying any flank pain, any abdominal pain, any pelvic pain, any fevers or chills at home, any nausea or vomiting. No additional symptoms or concerns at this time. Related Data Home Medications Medication Instructions Recorded Confirmed montelukast 10 mg tablet 1 tablet PO DAILY 04/30/22 09/03/24 levonorgestrel 17.5 mcg/24 hr (up 1 device intrauterine ONCE 11/21/22 09/03/24 to 5 yrs) 19.5mg intrauterine device (Kyleena) citalopram 20 mg tablet 20 mg PO DAILY 10/13/23 09/03/24 quetiapine 100 mg tablet 100 mg PO DIRECTED 10/13/23 09/03/24 Allergies Allergy/AdvReac Type Severity Reaction Status Date / Time No Known Allergies Allergy Verified 09/03/24 19:30 Review of Systems Review of Systems: All systems are reviewed and are negative unless stated otherwise in the HPI. [facility] Past Medical History Medical History Anxiety and depression Seasonal allergies Surgical History Surgical History No pertinent past surgical history Social History Social History Smoking status: Never smoker Gender identity (if verbalized by the patient): Female Exam Narrative: General: Alert, awake, afebrile, in no acute distress. HEENT: PERRL, no rhinorrhea, no post nasal drip, oropharynx clear. Neck: Trachea midline, no JVD, no lymphadenopathy. Cardiovascular: Regular rate and rhythm, no murmurs, rubs or gallops, no peripheral edema. Respiratory: Clear to auscultation bilaterally, no tachypnea, no wheezing, no rhonchi, no rubs, no respiratory distress. Abdomen: Soft, nontender, nondistended, no rebound, no guarding, no peritoneal signs. Musculoskeletal: No joint swelling or deformity, normal muscle tone. Skin: No rashes or petechia, no signs of infection. Psychiatric: Alert and oriented, normal behavior and judgment for situation. Neurological: Alert and oriented to person, place, and time. Follows all commands. No focal deficits, speech is clear and fluent. Course Vital Signs Vital signs: Vital Signs Temperature 98.9 F 09/03/24 19:37 Pulse Rate 102 H 09/03/24 19:37 Respiratory Rate 16 09/03/24 19:37 Blood Pressure 114/70 09/03/24 19:37 Pulse Oximetry 100 09/03/24 19:37 Temperature 98.1 F 09/04/24 00:25 Pulse Rate 79 09/04/24 01:54 Respiratory Rate 15 09/04/24 01:54 Blood Pressure 114/66 09/04/24 01:54 Pulse Oximetry 100 09/04/24 01:54 MDM - Female Genitourinary MDM Narrative Medical decision making narrative: The patient was evaluated by myself in the emergency department. History is obtained from patient who is an independent historian and physical exam was performed. External medical records were reviewed at this time. IV was established and pertinent tests were ordered. Patient was administered 1 L IV fluid bolus with normal saline. Laboratory results obtained revealing no acute process. Urinalysis revealing nitrate positive UTI with greater than 100 RBCs and greater than 100 white blood cells and 3+ leuk esterases. At this time patient was administered 2 g of IV Rocephin and was informed that she will be sent home on an oral antibiotic and a referral to a urologist and patient is agreeable with this plan. Patient has had 2 doses of pre DM today and she was administered her 3rd dose in the emergency department and was informed that she will be provided with a script for 3 doses to finish tomorrow totaling 6 doses. Differential diagnosis considerations include UTI, pyelonephritis, cystitis. Comorbidities impacting this visit include history of recurrent urinary tract infections. I have evaluated and discussed social determinants of health with the patient that could potentially impact subsequent diagnosis and treatment plans. On repeat assessment of the patient, reevaluation revealed that the patient is doing well and is in no acute distress. Patient symptoms have improved since she arrived to our emergency department. Repeat vital signs were all reviewed and noted to be stable. Differential diagnosis and treatment plan were discussed with the patient at bedside. Patient agrees with discussion and after shared medical decision making agrees with discharge. All questions were answered to the patient's satisfaction. Patient will follow up with Urology in 3-5 days. Patient was provided with str ict return precautions and instructed to return to the emergency department if any new or worsening symptoms develop. The patient was discharged in stable condition. Lab Data 09/03/24 21:53 09/03/24 21:53 Labs: Lab Results 09/03/24 09/04/24 09/04/24 Range/Units 21:53 00:38 00:51 WBC 12.9 H (4.5-10.0) K/mm3 RBC 4.63 (4.2-5.4) M/mm3 Hgb 14.2 (12.0-15.0) g/dL Hct 40.5 (37.0-47.0) % MCV 87.5 (80-100) fl MCH 30.7 (26-34) pg MCHC 35.1 (32-36) g/dl RDW 12.4 (11.5-14.5) % Plt Count 156 (150-375) k/mm3 MPV 9.5 (7.4-10.4) fl Immature Gran % (Auto) 0.4 (0-0.5) % Neut % (Auto) 74.3 H (45.5-73.1) % Lymph % (Auto) 14.4 L (18.3-44.2) % [place] % (Auto) 8.4 (2.6-8.5) % Eos % (Auto) 2.2 (0-4.4) % Baso % (Auto) 0.3 (0.2-1.2) % Lymph # (Auto) 1.86 (0.9-3.2) K/mm3 [place] # (Auto) 1.1 H (0.1-0.6) K/mm3 Eos # (Auto) 0.3 (0-0.3) K/mm3 Baso # (Auto) 0.0 (0.0-0.1) K/mm3 Abs Immat Gran (auto) 0.05 H (0.00-0.031) K/mm3 Absolute Neuts (auto) 9.6 H (1.3-6.7) K/mm3 Absolute Nucleated RBC 0.000 (0.0-0.012) K/mm3 Nucleated RBC % 0.0 (0.0-0.2) % PT 13.4 (11.1-14.7) Seconds INR 1.0 APTT 25.1 (22.3-36.8) Seconds Sodium 138 (137-145) mmol/L Potassium 3.6 (3.4-5.0) mmol/L Chloride 105 (98-107) mmol/L Carbon Dioxide 27 (22-30) mmol/L Anion Gap 6 (4-12) mmol/L BUN 13 D (7-17) mg/dL Creatinine 0.60 L (0.7-1.0) mg/dL Estim Creat Clear Calc 104 ml/min Estimated GFR > 60 (59 - ) Glucose 101 (65-110) mg/dL Calcium 9.6 (8.4-10.2) mg/dL Total Bilirubin 1.0 (0.2-1.3) mg/dL AST 23 (14-36) U/L ALT 17 (6-35) U/L Alkaline Phosphatase 45 (38-126) U/L Total Protein 7.0 (6.3-8.2) g/dL Albumin 4.5 (3.5-5.1) g/dL Beta HCG, Quant < 2.39 mIU/ML Urine Color Red H (Yellow) Urine Appearance Cloudy H (Clear) Urine pH 5.5 (5.0-9.0) Ur Specific [place] 1.006 (1.001-1.035) Urine Protein 3+ H (Negative) mg/dL Urine Glucose (UA) Negative (Negative) mg/dL Urine Ketones Negative (Negative) mg/dL Ur Blood (Man) 3+ H (Negative) Urine Nitrate Positive H (Negative) Urine Bilirubin 1+ H (Negative) Urine Urobilinogen 0.2 (<2.0) mg/dL Leukocyte Esterase Rfl 3+ H (Negative) MAHI/UL Urine RBC >100 H (0-2) /hpf Urine WBC >100 H (0-3) /hpf Ur Squamous Epith Cells None seen (Few) /hpf Urine Bacteria Rare /hpf Urine Casts 3-5 POC Urine HCG, Qual Negative (Negative) Blood Type A Negative Antibody Screen Negative Screen TNP Baby's Blood Type Not Reportable Baby's ZORAIDA Not Reportable Doses of RhIg Required 1 Discharge Plan Discharge Clinical Impression: Urinary tract infection Patient Disposition: Home, Self-Care Condition: Improved Instructions: Antibiotic Form, Urinary Tract Infection in Women (ED), Hematuria (ED), Dysuria (ED) Additional Instructions: Please take the prescribed antibiotic as instructed for the next 7 days. You were provided with a script for 3 doses of peridium and you will take them all tomorrow one in the morning one in the afternoon and one in the evening. Your p rovided with a urologist to follow up with and instructed to call tomorrow to set up an appointment to be seen within the next 3-5 days. Return to the emergency department if any new or worsening symptoms develop. Prescriptions: New cephalexin 500 mg capsule 500 mg PO Q12H 7 Days Qty: 14 0RF phenazopyridine [Pyridium] 200 mg tablet 200 mg PO TID 1 Days Qty: 3 0RF No Action montelukast 10 mg tablet 1 tablet PO DAILY Kyleena 17.5 mcg/24 hrs (5 yrs) 19.5 mg Intrauterine Device 1 device INTRAUTERINE ONCE Rx Instructions: as a single dose phenazopyridine [Pyridium] 200 mg tablet 200 mg PO TID PRN (Reason: pain) Qty: 6 0RF quetiapine 100 mg tablet 100 mg PO DIRECTED citalopram 20 mg tablet 20 mg PO DAILY amoxicillin-pot clavulanate 875-125 mg tablet 1 tablet PO Q12H 5 Days Qty: 10 0RF Follow-up/Referrals: Mojgan,JOHN Akins [Primary Care Provider] - 1 Week Vj Hogan MD [Physician] - 3 Days Time of Disposition: 01:39
[2024-09-04 01:23] LABS: Bacteria Urine Rare /hpf; RBC Urine >100 /hpf (0-2); Squamous Epithelial Cell Urine None Seen /hpf (Few); WBC Urine >100 /hpf (0-3)
[2024-09-04 01:27] LABS: Add Urine Microscopic? YES; Appearance Urine Cloudy (Clear); Bilirubin Urine 1+ (Negative); Blood Urine 3+ (Negative); Color Urine Red (Yellow); Glucose Urine UA Negative (Negative); Ketones Urine Negative (Negative); Leukocyte Esterase Ur 3+ LEU/UL (Negative); Nitrate Urine Positive (Negative); Protein Urine 3+ mg/dL (Negative); Specific Grav Ur 1.006 (1.001-1.035); Urobilinogen Urine 0.2 mg/dL (<2.0); pH Urine 5.5 (5.0-9.0)
[2024-09-04] MEDS: cefTRIAXone 2 GM/NS 100 ML 2 GM/100 ML BAG IVPB (01:41)
[2024-09-04] MEDS: PHENAZOPYRIDINE HCL 100 MG TABLET 200 MG PO (01:50)
[2024-09-04 01:54] VITALS: BP 114/66; PULSE 79; RESP 15; O2SAT 100
== END 2024-09-04 01:55 | disposition home or self-care (01) ==
PROVIDERS: Emergency Provider Emergency Medicine; PCP Physician Assistant
DX: N39.0 Urinary tract infection, site not specified (principal); F41.9 Anxiety disorder, unspecified; F32.A Depression, unspecified; Z97.5 Presence of (intrauterine) contraceptive device; Z79.899 Other long term (current) drug therapy
CPT/HCPCS: 36415; 80053; 81001; 81025; 84702; 85025; 85461; 85610; 85730; 86850; 86900; 86901; 87086; 87186; 96365; 99284; A9270; J0696; J7030